=== PATIENT | male | born 1940 | race Caucasian/White ===

== ENCOUNTER 2020-02-16 13:17 | Emergency (ER) | payer MEDICARE, OTHER ==
[~2020-02-16] VITALS: Ht 172.7 cm; Wt 101.4 kg
[~2020-02-16 13:17] MED LIST: CIPRO 500MG TA500 MG PO; FISH OIL1 POW; GARLIC OIL1 MG PO; GLUCOSAMINE CHO1 CA1 PO; HCTZ 25MG25 MG PO; LISINOPRIL1 POW; MULTIPLE VITAMI1 CAP PO; ZOCOR 20MG20 MG PO; ZOCOR20 MG PO
[2020-02-16 14:07] VITALS: TEMP 98.1
[2020-02-16 14:42] LABS: BASO % 0.6 % (0.0-2.0); EOS # 0.1 (0.0-0.7); EOS % 1.9 % (0-4.0); GRAN # 3.2 (1.4-6.5); GRAN % 49.6 % (42.2-75.2); HEMATOCRIT 46.4 % (42.0-52.0); LYMPH # 2.6 (1.2-3.4); LYMPH % 40.4 % (20.0-51.0); MEAN CELL VOLUME 89 fl (80.0-100.0); MEAN CORPUSCULAR HEMOGLOBIN 31 pg (27.0-31.0); MEAN CORPUSCULAR HGB CONC 35 g/dl (33.0-37.0); MEAN PLATELET VOLUME 10.3 fl (7.4-10.4); MONO # 0.5 (0.1-0.6); MONO % 7.3 % (1.7-9.3); PLATELET COUNT 144 K/mm3 (130-400); RED BLOOD COUNT 5.23 M/mm3 (4.20-5.60); REDCELL DISTRIBUTION WIDTH-CV 13.2 % (11.5-14.5)
[2020-02-16 14:49] LABS: ALANINE AMINOTRANSFERASE 41 U/L (4-49); ALBUMIN 4.5 gm/dL (3.5-5.0); ALKALINE PHOSPHATASE 49 U/L (50-136); ANION GAP 9 mmol/L (7-16); AST,SGOT 41 U/L (15-37); BILIRUBIN,TOTAL 0.8 mg/dL (0.0-1.0); BLOOD UREA NITROGEN 20 mg/dL (9-20); CALCIUM 9.6 mg/dL (8.4-10.2); CARBON DIOXIDE 28 mmol/L (22-30); CHLORIDE 103 mmol/L (98-107); CREATININE, serum 1.08 (0.66-1.25); GLUCOSE 125 mg/dL (74-106); POTASSIUM 3.9 mmol/L (3.4-5.0); SODIUM 140 mmol/L (137-145)
[2020-02-16 15:00] LABS: TROPONIN-I < 0.012 ng/mL (0.000-0.035)
[2020-02-16 15:45] VITALS: BP 163/95; PULSE 72
[2020-02-16] MEDS ORDERED: TOPROL XL 50MG50 MG PO (15:58)
[2020-02-16] MEDS ORDERED: NORVASC 5MG5 MG/TAB PO (16:12)
== END 2020-02-16 16:09 | disposition home or self-care (01) ==
LOC: COL.ER 13:17
PROVIDERS: Nurse Practitioner
DX: I10 Essential (primary) hypertension (principal); Z88.8 Allergy status to other drugs, medicaments and biological substances
CPT/HCPCS: J0360